=== PATIENT | male | born 1995 | race Caucasian/White ===

== ENCOUNTER → 2024-08-03 | Outpatient (CLI) | payer OTHER ==
--- NOTE | 2024-08-05 19:07 | MR ---
EXAMINATION TYPE: MR cervical spine wo con DATE OF EXAM: 08/03/2024 COMPARISON: None HISTORY: 28 year-old male M54.2, cervicalgia, Back and neck pain with headaches for 6 years, no inury TECHNIQUE: Multiplanar, multisequence images of the cervical spine were acquired without contrast. Findings: No craniocervical junction abnormality, predental space widening, or prevertebral soft tissue swellin g. There is early intervertebral disc desiccation throughout the cervical spine. No focal disc herniatio n or disc height loss. Diminished marrow signal in keeping with patient's age and prominent right ventricle. Alignment is maintained. No significant neuroforaminal stenosis is seen. Normal course, caliber, signal intensity in the cervical spinal cord. No prevertebral or paravertebral soft tissue abnormality. Mild mucosal thickening throughout the sphenoid sinuses. IMPRESSION: 1. Early intervertebral disc desiccation. Query any smoking history. 2. However, otherwise, no focal disc herniation or significant spinal canal or foraminal stenosis see n. [facility] 08/05/2024 7:01 PM
== END | disposition home or self-care (01) ==
LOC: RADMRIMAIN 09:43
PROVIDERS: ATTEND Family Medicine
DX: M50.30 Other cervical disc degeneration, unspecified cervical region (principal)
CPT/HCPCS: 72141